=== PATIENT | female | born 1985 | race Caucasian/White ===

== ENCOUNTER → 2021-04-12 10:43 | Outpatient (CLI) | payer OTHER, SELFPAY ==
--- NOTE | ~2021-04-12 | US_ITS ---
EXAMINATION: US OB <= 14 weeks fetus EXAM DATE: 04/12/2021 11:24 INDICATION: care for patient with recurrent loss. 1st trimester. TECHNIQUE: Pelvic obstetrical transabdominal sonogram was performed by a technologist. There are mu ltiple grayscale and Doppler images available for interpretation. There are no earlier studies of th is gestation for comparison. FINDINGS: Uterus measures 10.1 x 5.7 x 6.6 cm. There is intrauterine gestation sac. pole with heart rate confirmed at 141 beats per minute. The 9 mm crown-rump length corresponds to estimated g estational age by ultrasound of 6 weeks 6 days, estimated date of confinement 11/30/2021. Yolk sac is identified. There is a subchorionic hemorrhage measuring 0.9 x 0.9 x 1.5 cm. Right ovary measures 3.8 x 2.5 x 1.9 cm, the left not identified. IMPRESSION: 1. Live intrauterine gestation, age by ultrasound 6 weeks 6 days. 2. Small subchorionic hemorrhage. Reviewed, dictated and finalized at location A.
== END ==
PROVIDERS: Visit Provider Obstetrics & Gynecology
DX: O26.21 Pregnancy care for patient with recurrent pregnancy loss, first trimester (principal); Z3A.01 Less than 8 weeks gestation of pregnancy
CPT/HCPCS: 76801

== ENCOUNTER → 2021-05-03 11:07 | Outpatient (CLI) | payer OTHER, SELFPAY ==
--- NOTE | ~2021-05-03 | US_ITS ---
EXAMINATION: US OB limited EXAM DATE: 05/03/2021 11:29 INDICATION: Subchorionic hematoma 1st trimester. 1st trimester. TECHNIQUE: Pelvic obstetrical transabdominal sonogram was performed by a technologist. There are mu ltiple grayscale and Doppler images available for interpretation. Comparison is made to prior examina tion from 04/12/2021. FINDINGS: Uterus measures 11.5 x 6.3 x 9.0 cm. There is intrauterine gestation sac. pole with heart rate confirmed at 169 beats per minute. Resolution of previously seen small subchorionic hemor rhage, no evidence of subchorionic merge today. IMPRESSION: Resolution of previously seen small subchorionic hematoma. Live intrauterine gestation. Reviewed, dictated and finalized at location A. IMPRESSION: Resolution of previously seen small subchorionic hematoma. Live int rauterine gestation.
== END ==
PROVIDERS: Visit Provider Obstetrics & Gynecology
DX: O36.8910 Maternal care for other specified fetal problems, first trimester, not applicable or unspecified (principal); Z3A.00 Weeks of gestation of pregnancy not specified
CPT/HCPCS: 76815

== ENCOUNTER → 2021-06-28 11:19 | Outpatient (CLI) | payer OTHER, SELFPAY ==
--- NOTE | ~2021-06-28 | US_ITS ---
EXAMINATION: US OB /maternal detail DATE: 06/28/2021 12:10 INDICATION: Second trimester anatomic survey TECHNIQUE: Real-time ultrasound of the pelvis was performed. COMPARISON: None. FINDINGS: There is a single living fetus in vertex presentation. The placenta is anterior and 6.2 cm from the i nternal cervical os. heart rate is 132 beats per minute (bpm). cardiac activity and feta l movement are noted. The amniotic fluid index is subjectively normal. The following anatomy was identified as normal: 4 chamber heart 3 vessel cord cord insertion kidneys urinary bladder stomach spine diaphragm ventricles cisterna magna cerebellum The following biometric data were obtained: Biparietal diameter (BPD): 4.1 cm; head circumference (HC): 15.1 cm; abdominal circumference (AC): 12 .2 cm; femur length (FL): 2.4 cm. These measurements are concordant. Estimated weight is 209 g +/- 31 g, which correlates with the 39th percentile when 11/30/2021 is used as estimated date of delivery. As single measurements, these parameters are each equal to the following estimated gestational ages w ith ranges of +/- 2 standard deviations: BPD: 18 weeks 3 days ( 16 weeks 5 days - 20 weeks 2 days). HC: 18 weeks 1 days ( 16 weeks 5 days - 19 weeks 5 days). AC: 17 weeks 6 days ( 16 weeks 2 days - 19 weeks 4 days). FL: 17 weeks 3 days ( 16 weeks 1 days - 18 weeks 6 days). estimated gestational age based solely on measurements from this exam is 18 weeks 0 days +/- 1 weeks 2 days. IMPRESSION: 1. Single living fetus in vertex presentation. 2. Estimated weight is 209 g +/- 31 g, which correlates with the 39th percentile when 11/30/2021 is used as estimated date of delivery. Reviewed, dictated and finalized at location A. IMPRESSION: 1. Single living fetus in vertex presentation. 2. Estimated weight is 209 g +/- 31 g, which correlates with the 39th per centile when 11/30/2021 is used as estimated date of delivery.
== END ==
PROVIDERS: Visit Provider Obstetrics & Gynecology Gynecology
DX: Z34.92 Encounter for supervision of normal pregnancy, unspecified, second trimester (principal); Z3A.18 18 weeks gestation of pregnancy
CPT/HCPCS: 76805

== ENCOUNTER → 2021-08-26 10:36 | Outpatient (CLI) | payer OTHER, SELFPAY ==
--- NOTE | ~2021-08-26 | US_ITS ---
EXAMINATION: US OB follow up DATE: 08/26/2021 11:05 INDICATION: Vaginal spotting. Complicated . History of miscarriages. TECHNIQUE: Real-time transabdominal obstetric ultrasound. FINDINGS: Comparison to multiple prior studies sequentially, with oldest reviewed study dated 021. There is a single living fetus in vertex presentation. The placenta is anterior without placenta pre via. Placenta measures 9.3 cm to the cervix. cardiac activity and movement is noted with a heart rate of 141 beats per minute. T he amniotic fluid volume is normal. The following biometric data were obtained: BPD: 70mm corresponds to gestational age 28 weeks 0 days. Head circumference: 260mm corresponds to gestational age 28 weeks 2 days. Abdominal circumference: 218mm corresponds to gestational age 26 weeks 2 days. Femur length: 49mm corresponds to gestational age 26 weeks 4 days. Estimated weight: 966grams +/- 145grams, 54.6%. IMPRESSION: 1. Single living intrauterine in vertex presentation with an estimated gestational age of 26 weeks 2 days by inititial ultrasound. EDC by initial ultrasound is 11/30/2021 Appropriate interval growth. 2. Normal placenta. Reviewed, dictated and finalized at location A. [employer] INS[employer] IMPRESSION: 1. Single living intrauterine in vertex presentation with an estimat ed gestational age of 26 weeks 2 days by inititial ultrasound. EDC by initial u ltrasound is 11/30/2021 Appropriate interval growth. 2. Normal placenta.
== END ==
PROVIDERS: Visit Provider Obstetrics & Gynecology
DX: O26.852 Spotting complicating pregnancy, second trimester (principal); Z3A.26 26 weeks gestation of pregnancy
CPT/HCPCS: 76816

== ENCOUNTER 2021-11-08 21:22 | Inpatient (IN) | payer OTHER, SELFPAY ==
[2021-11-08 21:22] VITALS: BMI 24.9
--- NOTE | 2021-11-08 23:31 | LDADM ---
This patient, Santa Wilson, was admitted to Labor/Delivery/Recovery 106 on 11/08/21 at 21:22. Plans for labor, pain management and were discussed with patient. Patient/family oriented to hospital policies and general routines including ID bracelet, bed and alarms, visiting hours, pain management, procedures, bathroom and other care routines, personal items, smoking policy, room service/diet and guest tray routines, security routines, and visiting hours. Patient/Family are encouraged to report perceived risks to care and to ask questions if they do not understand what they are told or what they should do. See OBIX for further documentation.
[2021-11-08 23:38] VITALS: BP 107/71; PULSE 66
[2021-11-09] VITALS (97 sets, daily range): BP systolic 76–153; BP diastolic 37–120; PULSE 36–258; RESP 16; TEMP 36.6–37; O2SAT 36–100
[2021-11-09 00:07] LABS: Basophils Absolute Auto 0.1 K/mm3 (0.0-0.1); Basophils Percent Auto 0.7 % (0.2-1.2); Eosinophils Absolute Auto 0.1 K/mm3 (0-0.3); Eosinophils Percent Auto 0.6 % (0-4.4); Hematocrit 35.6 % (37.0-47.0); Hemoglobin 12.7 g/dL (12.0-15.0); Immature Granulocyte Absolute 0.09 K/mm3 (0.00-0.031); Immature Granulocyte Percent A 0.7 % (0-0.5); Lymphocytes Absolute Auto 2.79 K/mm3 (0.9-3.2); Lymphocytes Percent Auto 22.9 % (18.3-44.2); Mean Corpuscular HGB Conc 35.7 g/dl (32-36); Mean Corpuscular Hemoglobin 33.5 pg (26-34); Mean Corpuscular Volume 93.9 fl (80-100); Mean Platelet Volume 12.9 fl (7.4-10.4); Monocytes Absolute Auto 0.8 K/mm3 (0.1-0.6); Monocytes Percent Auto 6.8 % (2.6-8.5); Neutrophils Absolute Auto 8.3 K/mm3 (1.3-6.7); Neutrophils Percent Auto 68.3 % (45.5-73.1); Platelet Count Result 168 k/mm3 (150-375); Red Blood Count 3.79 M/mm3 (4.2-5.4); Red Cell Distribution Width 12.5 % (11.5-14.5); White Blood Count 12.2 K/mm3 (4.5-10.0)
--- NOTE | 2021-11-09 00:24 | WPDANESEPPF ---
Anes - Initial Pre Proc Eval Procedure: labor epidural Date/Time: 11/09/21 00:24 Surgeon: Mary Hollingsworth MD Pre Op Diagnosis: labor pain Pre Op Diagnosis: Contractions Patient Data Age: 36 Gender: F Height: 1.65 m Weight: 68 kg Last Vital Signs Pulse 66 11/08/21 23:38 BP 107/71 11/08/21 23:38 Allergies Allergy/AdvReac Type Severity Reaction Status Date / Time No Known Allergies Allergy Verified 11/08/21 12:36 Home Medications Medication Instructions Recorded Confirmed Type vit no.[id number] See Rx Instructions .ROUTE .COMPLEX 11/08/21 11/08/21 History [Classic ] Laboratory Tests 11/08/21 11/08/21 23:35 23:35 WBC 12.2 K/mm3 H K/mm3 (4.5-10.0) RBC 3.79 M/mm3 L M/mm3 (4.2-5.4) Hgb 12.7 g/dL g/dL (12.0-15.0) Hct 35.6 % L % (37.0-47.0) MCV 93.9 fl fl (80-100) MCH 33.5 pg pg (26-34) MCHC 35.7 g/dl g/dl (32-36) RDW 12.5 % % (11.5-14.5) Plt Count 168 k/mm3 k/mm3 (150-375) MPV 12.9 fl H fl (7.4-10.4) Immature Gran % (Auto) 0.7 % H % (0-0.5) Neut % (Auto) 68.3 % % (45.5-73.1) Lymph % (Auto) 22.9 % % (18.3-44.2) [place] % (Auto) 6.8 % % (2.6-8.5) Eos % (Auto) 0.6 % % (0-4.4) Baso % (Auto) 0.7 % % (0.2-1.2) Lymph # (Auto) 2.79 K/mm3 K/mm3 (0.9-3.2) [place] # (Auto) 0.8 K/mm3 H K/mm3 (0.1-0.6) Eos # (Auto) 0.1 K/mm3 K/mm3 (0-0.3) Baso # (Auto) 0.1 K/mm3 K/mm3 (0.0-0.1) Abs Immat Gran (auto) 0.09 K/mm3 H K/mm3 (0.00-0.031) Absolute Neuts (auto) 8.3 K/mm3 H K/mm3 (1.3-6.7) Absolute Nucleated RBC 0.0 K/mm3 K/mm3 (0.0-0.012) Nucleated RBC % 0.0 % % (0.0-0.2) RPR Pending Patient hx anesthesia problems: none Family hx anesthesia problems: none Results Review: All pre-operative results and documents have been reviewed as part of the pre-operative evaluation. [facility] Family History Family History Mother Pituitary benign neoplasm H/O: hysterectomy Grandparent Leukemia Macular degeneration History of hip replacement Grandparent Colon cancer Grandparent Afib History of hip replacement Sibling H/O: hysterectomy Social History Social History (Updated 11/08/21 @ 23:39 by Debora Bond RN) Smoking status: Never smoker Alcohol intake: former Substance use: never Living arrangements: with family Occupation/Education: occupation Gender identity (if verbalized by the patient): Female Sexual Orientation (if Verbalized by the Patient): Straight or Heterosexual Spiritual care concerns: No Anes - Eval Final PreProcedure Day of Procedure 11/09/21 00:24 Patient weight: normal ASA classification: II Anesthesia type and monitoring: regional epidural and standard monitoring Results Review: All pre-operative results and documents have been reviewed as part of the pre-operative evaluation. Informed Consent: The patient's anesthetic plan and its attendant risks and benefits were discussed with the patient/family/POA. Questions were solicited and answers provided to the satisfaction of the patient/family/POA.
[2021-11-09] MEDS: OXYTOCIN 30 UNITS/NS 500 ML 30 UNITS/500 ML BAG IV CONT ×2 (05:54→09:11)
[2021-11-09] MEDS: LACTATED RINGERS 1,000 ML 125 ML IV CONT ×2 (05:54→10:02)
--- NOTE | 2021-11-09 06:51 | WPDOBADMIT ---
Obstetrics - Admit Note Admission Note: record reviewed. No pertinent additions to the history and/or any subsequent changes in the physical findings that are not consistent with the expected course of the were found. Additions to the history and/or subsequent changes in the physical findings follow. None.Here in labor. Changed to 5 cm but then stalled. Now 5-6/80/-3 AROM with clear fluid. Pitocin started. FHTs reactive.
--- NOTE | 2021-11-09 10:14 | PM.OBPRVD ---
OB - Delivery Note Procedure Delivery date: 11/09/21 Procedure: events: Labor Augmentation Intrapartal events: None Delivery augmentation: rupture of membranes and pitocin Delivery monitor: external FHT and external uterine Route of delivery: Laceration Description: Periurethral and Vaginal - 1st Degree Delivery repair: vicryl (3-0 vicryl) Specimen: No Quantitative Blood Loss (ml): 100 Anesthesia type: Epidural Disposition: floor Baby Date of : 11/09/21 Weeks of gestation at delivery: 38 Infant gender: Female Weight (pounds): 6 Weight (ounces): 13 presentation: vertex position: Right Occiput Anterior Placenta delivery description: Spontaneous cord vessel description: 3 Vessels score one minute: 9 score five minutes: 9
--- NOTE | 2021-11-09 10:16 | P.DS_ITS ---
DS: Admitting Diagnosis Discharge Date 11/10/21 Admitting Diagnosis 38 1/2 weeks in labor DS: Discharge Diagnosis Discharge Diagnosis (1) (normal spontaneous vaginal delivery): Code(s): O80 - Encounter for full-term uncomplicated delivery Status: Acute OB - DS: Summary OB Procedures : Ultrasound OB Procedures Intrapartum: Spontaneous Vag Delivery OB Procedures: : None Peripartum Data Delivery Method: Natural Vaginal Laceration Description: Periurethral and Vaginal - 1st Degree complications: none Status at Discharge Functional status at discharge: independent ambulation Overall status at discharge: patient is progressing back to baseline Time Spent with Patient Time attestation: Total time spent providing and/or coordinating discharge services: DS: Data Data Completed and Pending Labs on day of discharge: Labs from last 24 hours 11/08/21 11/08/21 11/08/21 23:35 23:35 23:35 WBC 12.2 H RBC 3.79 L Hgb 12.7 Hct 35.6 L MCV 93.9 MCH 33.5 MCHC 35.7 RDW 12.5 Plt Count 168 MPV 12.9 H Immature Gran % (Auto) 0.7 H Neut % (Auto) 68.3 Lymph % (Auto) 22.9 [place] % (Auto) 6.8 Eos % (Auto) 0.6 Baso % (Auto) 0.7 Lymph # (Auto) 2.79 [place] # (Auto) 0.8 H Eos # (Auto) 0.1 Baso # (Auto) 0.1 Abs Immat Gran (auto) 0.09 H Absolute Neuts (auto) 8.3 H Absolute Nucleated RBC 0.0 Nucleated RBC % 0.0 RPR Pending Blood Type O Positive Antibody Screen Negative Discharge Plan Discharge Attending physician on discharge: Mary Hollingsworth Discharging Clinician: Mary Hollingsworth Anticipated Discharge Date/Time: 11/10/21 10:17 Patient Disposition: Home, Self-Care Activity: may shower and pelvic rest Diet: regular Patient Instructions: Antibiotic Form Stand Alone Forms: General Discharge Information Follow-up/Referrals: Mary Hollingsworth MD [Physician] - 6 Weeks Discharge Medications: Continued Classic 28 mg iron- 800 mcg Tablet See Rx Instructions .ROUTE .COMPLEX RF: 0 Date of admission: 11/08/21 21:22 Primary Care Provider: PHYSICIAN,RESOURCE MANAGER Admitting Provider: Mary Hollingsworth Attending physician on admission: Mary Hollingsworth Condition: Stable
[2021-11-09 12:12] LABS: Rapid Plasma Reagin Non-Reactive (NonReactive)
[2021-11-09] MEDS: BENZOCAINE 20% AER SPR (*SP) 56 GM CAN 1 SPRAY TOPICAL (13:22)
[2021-11-09] MEDS: DIBUCAINE 1% OINTMENT 30 GM TUBE 1 APPLIC TOPICAL (13:22)
[2021-11-09] MEDS: WITCH HAZEL 40 PADS 1 PAD TOPICAL (13:22)
[2021-11-09] MEDS: IBUPROFEN 600 MG TABLET PO ×2 (13:22→21:31)
--- NOTE | 2021-11-09 14:51 | PC.NURSE ---
Patient transferred to post room #284 via wheel chair. Support person present. Oriented to unit, room, information board, rooming in, admission packet and security measures. Patient verbalizes understanding.
[2021-11-09] MEDS: LANOLIN (LANSINOH) 7.5 GM CREAM 1 APPLIC TOPICAL (15:00)
--- NOTE | 2021-11-09 16:34 | PC.NURSE ---
1530 - Introductions were made and mother led conversation on her plan to feed her baby. Mother demonstrated understanding infant feeding cues, frequencies, duration of feedings, feeding elimination flow sheet, and signs of adequate intake and is currently infant on the right breast in cradle hold. Reviewed positioning/alignment asymmetrical latch on. nursed eagerly, with steady draws and occasional swallowing is visualized. Reviewed signs of a correct latch, effective nursing and bursts of suck swallow ratio. Infant was able to maintain latch without discomfort to mother.After baby detached nipple was slightly misshapen and nipple care and positioning reviewed using the mom and bby guide as an added resource. Instructed mother to call out for RN assistance if she is unable to latch for feeding or she has discomfort with nursing. Mother verbalized understanding of responsive feeding when she sees feeding cues or initiate three hours from start of last feeding. Breast pump provided due to mothers request related to the left nipple being inverted and that is how she breastfed her last baby with success. Mother's plan is to breastfed on the right and pump both breast after . Reviewed information regarding pump care, hand washing, nipple care and pumping 8 times in 24 hours (1-2 at night) for 10-15 minutes. Discussed she may want to pump after feedings or between feedings. If after feeding, rest for 5-10 minutes. Get something to eat/drink, use the restroom, then pump. Collection and storage of breast milk per mom and baby guide. Encouraged mom to place skin to skin, breast massage and use hand expression and/or a breast pump in a relaxing atmosphere. Reviewed recording pumping schedule on the feeding sheet or pumping log. Referred to the visual handout along with the mom and baby guide as a resource and when to call a provider. Reported to primary RN.
[2021-11-09] MEDS: ACETAMINOPHEN 325 MG TABLET 650 MG PO (18:40)
[2021-11-10] MEDS: ACETAMINOPHEN 325 MG TABLET 650 MG PO ×2 (00:15→09:41)
[2021-11-10 04:00] VITALS: BP 111/69; PULSE 56; RESP 16; TEMP 36.6; O2SAT 99
[2021-11-10] MEDS: IBUPROFEN 600 MG TABLET PO ×2 (04:02→12:09)
[2021-11-10] MEDS: DOCUSATE SODIUM 100 MG CAPSULE PO (04:14)
[2021-11-10 05:36] LABS: Hematocrit 30.9 % (37.0-47.0); Hemoglobin 10.6 g/dL (12.0-15.0)
--- NOTE | 2021-11-10 07:40 | PM.OBPNVD ---
OB - PN: Subj Subjective Date/time seen: 11/10/21 07:40 Patient comments: no complaints and pain well controlled baby status: doing well OB - PN: Obj Data Labs CBC & Chem 7: 11/10/21 04:09 Labs: Laboratory Results - last 24 hr 11/08/21 11/10/21 23:35 04:09 Hgb 10.6 L Hct 30.9 L RPR Non-reactive OB - PN A/P Plan day: 1 Plan: routine care, discharge home and other (plans condoms until vasectomy) Time Spent With Patient Time: Total time spent is greater than 50% in coordination of care (as documented) at patient's floor/unit and/or counseling patient: Exam : Bimanual exam- vagina & uterus: other (Uterus firm, nt @U)
[2021-11-10 08:20] VITALS: BP 99/55; PULSE 56; RESP 16; TEMP 37.3; O2SAT 97
--- NOTE | 2021-11-10 09:32 | WPDANLDPN2 ---
Anes-Prog Note L&D Date/Time: 11/10/21 09:32 Comfortable throughout: labor and delivery Neuraxial method: epidural Epidural/Spinal procedure site: clean & non-tender Neuro status: Neuro function grossly intact. Cardiovascular status: normal Respiratory status: normal Airway patency: baseline Mental status: baseline Post-Op hydration status: normal Vital Signs: Last Vital Signs Temp 36.6 C 11/10/21 04:00 Pulse 56 L 11/10/21 04:00 Resp 16 11/10/21 04:00 BP 111/69 11/10/21 04:00 Pulse Ox 99 11/10/21 04:00 Pain score (VAS): 3 Post-procedural complaints: none Patient feedback: Patient satisfied with anesthetic care.
[2021-11-10] MEDS: MULTIVIT/MIN/PREN/FOL AC/IRON TABLET 1 TAB PO (09:41)
[2021-11-10] MEDS: DIBUCAINE 1% OINTMENT 30 GM TUBE 1 APPLIC TOPICAL (12:09)
--- NOTE | 2021-11-10 12:15 | PC.NURSE ---
Patient to view the discharge video Mother & Baby Care, The First Two Weeks online. Patient was given the opportunity and encouraged to ask questions. Patient verbalized understanding of information shared and has been given the mother/baby guide for home reference.
--- NOTE | 2021-11-10 13:51 | PC.NURSE ---
0881 - Mom shares her experience with feeding her baby so far. She states that she attempted to breastfeed the infant on her left breast with a nipple shield related to the inverted nipple but it hurt, so she went back to her original plan of pumping the left and on the right breast only. 1010 - Breast pump provided due to inverted nipple. Reviewed information regarding pump care, hand washing, nipple care and pumping 8 times in 24 hours (1-2 at night) for 10-15 minutes. Discussed she may want to pump after feedings or between feedings. If after feeding, rest for 5-10 minutes. Get something to eat/drink, use the restroom, then pump. Collection and storage of breast milk per mom and baby guide. Encouraged mom to place infant skin to skin, breast massage and use hand expression and/or a breast pump in a relaxing atmosphere. Reviewed recording pumping schedule on the feeding sheet. Referred to the visual handout along with the mom and baby guide as a resource and when to call a provider. Reported to primary RN.
[2021-11-11 11:30] VITALS: BP 103/62; PULSE 78; RESP 20; TEMP 37; O2SAT 100
== END 2021-11-10 12:48 | disposition home or self-care (01) | DRG 807 ==
LOC: ANHLDR 11-09 12:51 → ANHOB2 11-09 16:06
PROVIDERS: Admitting Provider Obstetrics & Gynecology Gynecology; Visit Provider Obstetrics & Gynecology Gynecology
DX: O76 Abnormality in fetal heart rate and rhythm complicating labor and delivery (principal); Z37.0 Single live birth; O70.0 First degree perineal laceration during delivery; O71.82 Other specified trauma to perineum and vulva; Z3A.38 38 weeks gestation of pregnancy
CPT/HCPCS: 36415; 85014; 85018; 85025; 86592; 86850; 86900; 86901; A9270; J2590; J2795; J7120